=== PATIENT | male | born 1990 | race African-American/Black ===

== ENCOUNTER 2017-06-21 13:51 | Emergency (ER) | payer MEDICAID ==
[~2017-06-21] VITALS: Ht 195.6 cm; Wt 113.4 kg
[2017-06-21 13:51] VITALS: BP_SYST 103
[2017-06-21] MEDS: ONDANSETRON HCL 4 MG/2 ML VIAL IVP ONE (14:28)
[2017-06-21] MEDS: KETOROLAC TROMETHAMINE 30 MG VIAL IVP ONE (14:29)
[2017-06-21] MEDS: NACL 0.9% 1,000 ML IV ONE (14:42)
[2017-06-21 15:33] LABS: BASOPHILS # (AUTO) 0.2 K/uL (0.0-0.2); BASOPHILS % (AUTO) 1.7 % (0.0-2.0); EOSINOPHILS % (AUTO) 0.4 % (0.0-4.0); HEMOGLOBIN 15.3 g/dL (14.0-18.0); LYMPHOCYTES # (AUTO) 0.7 K/uL (1.0-5.5); MEAN CORPUSCULAR HEMOGLOBIN 30 pg (27-31); MEAN CORPUSCULAR HGB CONC 33 % (32-36); MEAN CORPUSCULAR VOLUME 91 fL (79.0-98.0); MONOCYTES # (AUTO) 0.7 K/uL (0.0-1.0); NEUTROPHILS # (AUTO) 10.8 K/uL (1.8-7.7); PLATELET COUNT (AUTO) 326 K/uL (130-430); RED BLOOD CELL COUNT(AUTO) 5.06 MIL/uL (4.2-6.2); RED CELL DISTRIBUTION WIDTH 12.8 % (9.0-15.0); WHITE BLOOD COUNT (AUTO) 12.4 K/uL (4.8-10.8)
[2017-06-21 15:44] LABS: CALCIUM 8.3 mg/dL (8.4-11.0); CREATININE 1.25 mg/dL (0.55-1.30); POTASSIUM 3.8 mmol/L (3.5-5.1)
[2017-06-21 15:50] LABS: ALBUMIN 3.8 g/dL (3.4-4.8); TOTAL BILIRUBIN 0.5 mg/dL (0.0-1.0)
[2017-06-21 15:58] LABS: NEUTROPHILS % (AUTO) 85.9 % (40.0-70.0)
[2017-06-21 16:11] LABS: CANNABINOID, URINE POSITIVE (NEG <=50); METHAMPHETAMINES SCREEN,URINE POSITIVE (NEG <=500); URINE AMPHETAMINE POSITIVE (NEG <=500)
[2017-06-21 16:12] LABS: BARBITURATE, URINE NEGATIVE (NEG <=200); BENZODIAZEPINE, URINE POSITIVE (NEG <=150); COCAINE, URINE NEGATIVE (NEG <=150); OPIATE, URINE NEGATIVE (NEG <=100); PHENCYCLIDINE SCREEN,URINE NEGATIVE (NEG <=25); UR TRICYCLIC ANTIDEPRESSANTS NEGATIVE (NEG <=300); URINE METHADONE NEGATIVE (NEG <=200); URINE OXYCODONE SCREEN NEGATIVE (NEG <=100); URINE PROPOXYPHENE SCREEN NEGATIVE (NEG <=300)
[2017-06-21 16:19] VITALS: BP_SYST 110
== END 2017-06-21 16:17 | disposition home or self-care (01) ==
LOC: SED 13:51
DX: R10.13 Epigastric pain (principal); R11.0 Nausea; R42 Dizziness and giddiness; F19.10 Other psychoactive substance abuse, uncomplicated; J45.909 Unspecified asthma, uncomplicated
CPT/HCPCS: 36415; 74020; 80053; 80307; 83690; 85025; 96361; 96374; 96375; 99285; J1885; J2405; J7030

== ENCOUNTER 2017-06-21 20:24 | Emergency (ER) | payer MEDICAID ==
[~2017-06-21] VITALS: Ht 193 cm; Wt 99.8 kg
[2017-06-21 20:39] VITALS: BP_SYST 135
[2017-06-21 22:10] VITALS: BP_SYST 135
== END 2017-06-21 22:10 | disposition home or self-care (01) ==
LOC: SED 20:24
DX: R51 Headache (principal); R03.0 Elevated blood-pressure reading, without diagnosis of hypertension; J45.909 Unspecified asthma, uncomplicated; V89.2XXA Person injured in unspecified motor-vehicle accident, traffic, initial encounter; Y93.89 Activity, other specified; Y92.488 Other paved roadways as the place of occurrence of the external cause; Y99.8 Other external cause status
CPT/HCPCS: 70450-TC; 99284